=== PATIENT | male | born 1980 | race Caucasian/White ===

== ENCOUNTER 2020-04-22 09:00 | Outpatient (CLI) | payer OTHER, SELFPAY ==
--- NOTE | ~2020-04-22 | XR_ITS ---
XR shoulder RT min 2V DATE: 04/22/2020 09:12 INDICATION: Injury. Right shoulder pain, limited range of motion TECHNIQUE: 4 views COMPARISON: None FINDINGS: No fracture or dislocation, periosteal reaction or bone destruction. No abnormal soft tissu e calcification. IMPRESSION: Negative Reviewed, dictated and finalized at location A. IMPRESSION: Negative
== END 2020-04-22 09:01 | disposition home or self-care (01) ==
LOC: ANHIMG 09:03
PROVIDERS: PCP Family Medicine; Visit Provider Nurse Practitioner Family
DX: M25.519 Pain in unspecified shoulder (principal); M25.611 Stiffness of right shoulder, not elsewhere classified
CPT/HCPCS: 73030

== ENCOUNTER 2021-01-26 15:10 | Outpatient (CLI) | payer OTHER, SELFPAY ==
--- NOTE | ~2021-01-26 | XR_ITS ---
XR shoulder RT min 2V DATE: 01/26/2021 15:29 INDICATION: Right shoulder pain. Injury last fall. TECHNIQUE: 4 views COMPARISON: 05/04/2020 right shoulder FINDINGS: No fracture or dislocation, periosteal reaction or bone destruction or abnormal soft tissue calcification. IMPRESSION: No significant abnormality Reviewed, dictated and finalized at location B. IMPRESSION: No significant abnormality
== END 2021-01-26 15:11 | disposition home or self-care (01) ==
LOC: ANHIMG 15:14
PROVIDERS: PCP Family Medicine; Visit Provider Nurse Practitioner Family
DX: M25.511 Pain in right shoulder (principal); G89.29 Other chronic pain
CPT/HCPCS: 73030

== ENCOUNTER → 2021-07-13 02:53 | Outpatient (CLI) | payer OTHER, SELFPAY ==
[2021-07-14 02:21] LABS: SARS-CoV-2 RNA PCR Positive
== END ==
PROVIDERS: PCP Family Medicine; Visit Provider Nurse Practitioner Family
DX: U07.1 COVID-19 (principal)
CPT/HCPCS: C9803; U0003; U0005

== ENCOUNTER → 2021-09-20 10:40 | Outpatient (CLI) | payer OTHER, SELFPAY ==
--- NOTE | ~2021-09-20 | MR_ITS ---
EXAMINATION: MR shoulder RT wo con DATE: 09/20/2021 11:21 INDICATION: Right shoulder pain TECHNIQUE: Magnetic resonance imaging (MRI) of the right shoulder was performed without intravenous c ontrast. Sequences included axial PD-weighted FS FSE, coronal oblique PD-weighted FS FSE, coronal obl ique T2-weighted FS FSE, sagittal PD-weighted FS FSE, and sagittal T1-weighted SE. COMPARISON: Right shoulder radiograph dated 01/26/2021 FINDINGS: Coracoacromial arch: The acromion undersurface is curved in morphology (type II). The coracoacromial ligament is normal. M ild to moderate acromioclavicular osteoarthritis with small inferiorly directed osteophytes which rem ains separate from the underlying supraspinatus muscle and tendon by thin intervening fat plane. Rotator cuff: Mild tendinopathy of the supraspinatus, infraspinatus and cephalad portion of the subscapularis tendo n without discrete tear. The teres minor tendon is normal. Normal rotator cuff muscle bulk and signal . Biceps tendon, glenoid labrum and glenohumeral cartilage: Long head of the biceps tendon is normal. Glenoid labrum is normal. Glenohumeral cartilage is normal. Fluid: Physiologic amount of fluid in the glenohumeral joint and biceps tendon sheath. No loose osteochondr al bodies. Mild increased fluid signal in the subacromial/subdeltoid bursa consistent with mild bursi tis. Bones: Normal marrow signal with no edema, fracture or pathologic marrow replacing process. Minimal cystic c hange at the middle facet of the greater tuberosity. IMPRESSION: 1. Mild tendinopathy of the supraspinatus, infraspinatus and cephalad subscapularis tendons without d iscrete tear. 2. Mild subacromial/subdeltoid bursitis. 3. Mild to moderate acromioclavicular osteoarthritis. Reviewed, dictated and finalized at location A. [employer] IMPRESSION: 1. Mild tendinopathy of the supraspinatus, infraspinatus and cephalad subscapul ean tendons without discrete tear. 2. Mild subacromial/subdeltoid bursitis. 3. Mild to moderate acromioclavicular osteoarthritis.
== END ==
PROVIDERS: Visit Provider Nurse Practitioner Family
DX: M25.511 Pain in right shoulder (principal); S46.011A Strain of muscle(s) and tendon(s) of the rotator cuff of right shoulder, initial encounter; M75.51 Bursitis of right shoulder; M19.011 Primary osteoarthritis, right shoulder
CPT/HCPCS: 73221

== ENCOUNTER 2023-01-06 16:26 | Emergency (ER) | payer OTHER, SELFPAY ==
--- NOTE | ~2023-01-06 | XR_ITS ---
AP view of the pelvis and AP and lateral views of the left hip Clinical history: Pain Findings: No acute fracture or dislocation is seen. Osseous alignment is anatomic. Bilateral hip and SI joint spaces are preserved. Soft tissues are unremarkable. Impression: No significant abnormality is seen. Reviewed, dictated and finalized at [facility] [place]. Impression: No significant abnormality is seen.
[2023-01-06 16:31] VITALS: BP 138/79; PULSE 90; RESP 16; TEMP 37.2; O2SAT 99
--- NOTE | 2023-01-06 17:45 | ED.FALL ---
HPI - Fall General Chief Complaint: Fall <Elena Toribio PA-C - Last Filed: 01/06/23 17:59> Stated Complaint: fall about 4 ft on hip <Elena Toribio PA-C - Last Filed: 01/06/23 17:59> Time Seen by Provider: 01/06/23 17:31 <Elena Toribio PA-C - Last Filed: 01/06/23 17:59> History of Present Illness HPI Narrative: Patient is a 42-year-old male here for evaluation of left hip pain after fall about 5 hours prior to arrival. Patient states that he was working out on his back deck, in the process of building a porch, when he stepped on a board that was loose and fell from about 4 feet up. He landed directly on the left hip. Has been able to walk but states it is painful. No incontinence or retention of bowel or bladder, saddle anesthesia, numbness or tingling in the leg or weakness. Took 800 mg ibuprofen prior to arrival without relief of his pain. <Elena Toribio PA-C - Last Filed: 01/06/23 17:59> Related Data Allergies/Adverse Reactions: Allergies Allergy/AdvReac Type Severity Reaction Status Date / Time No Known Allergies Allergy Verified 08/31/21 10:24 <Elena Toribio PA-C - Last Filed: 01/06/23 17:59> Review of Systems Review of Systems: Gen: Denies fevers or chills Eyes: Denies eye pain or visual change ENT: Denies congestion Respiratory: Denies shortness of breath or cough CV: Denies chest pain or palpitations GI: Denies abdominal pain nausea, emesis or diarrhea : denies burning, urgency, frequency or hematuria Musculoskeletal: reports left hip pain Neuro: Denies numbness, tingling, weakness or focal weakness Skin: Denies rash Except as documented, all other systems reviewed and negative <Elena Toribio PA-C - Last Filed: 01/06/23 17:59> [facility] Past Medical History Medical History: Medical History BMI 39.0-39.9,adult BMI 40.0-44.9, adult External constriction of right shoulder Unspecified injury of muscle(s) and tendon(s) of the rotator cuff of right shoulder, initial encounter <Elena Toribio PA-C - Last Filed: 01/06/23 17:59> Family History Family History: Family History Mother Hypertension Grandparent Family history of malignant neoplasm Carcinoma of colon Father No problems noted. Sibling No problems noted. 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 Head: Normocephalic and atraumatic. EYES: PERRLA/EOMI, conjunctivae clear NOSE: No nasal drainage EARS: External ear normal in appearance THROAT: Oropharynx is clear. Mucous membranes are moist. NECK: Supple. No adenopathy, no masses. RESPIRATORY: Airway patent, respirations nonlabored. Clear to auscultation bilaterally, no rales, rhonchi, wheezing. CARDIOVASCULAR: 2+ dp/pt pulses bilaterally. Regular rate and rhythm without murmurs, rubs, or gallops. ABDOMINAL: No bruising to the flank or abdomen. No tenderness to abdomen. MUSCULOSKELETAL: There is tenderness to palpation of the left lateral hip. There is no bruising to the area. NEURO: Normal speech. No focal neurologic deficits. SKIN: Skin is warm and dry. No rashes. PSYCHIATRIC: Normal affect/mood. <lEena Toribio PA-C - Last Filed: 01/06/23 17:59> Course ORAL HYGIENIST/PA Physician Supervi
== END 2023-01-06 18:13 | disposition home or self-care (01) ==
LOC: ANHED 17:43
PROVIDERS: Emergency Provider Physician Assistant; PCP Family Medicine
DX: S79.912A Unspecified injury of left hip, initial encounter (principal); W13.8XXA Fall from, out of or through other building or structure, initial encounter
CPT/HCPCS: 73502; 99283

== ENCOUNTER 2023-09-10 03:36 | Day surgery (SDC) | payer OTHER, SELFPAY ==
[2023-08-16 15:03] VITALS: BMI 40.8
--- NOTE | 2023-09-07 12:16 | SUR.PREOP ---
Patient called regarding upcoming procedure. Reviewed preop instructions, appointment times, and procedure prep.
[2023-09-10 09:37] VITALS: BP 161/96; PULSE 72; RESP 20; TEMP 36.3; O2SAT 98; BMI 41.3
[2023-09-10] MEDS: LACTATED RINGERS 1,000 ML 150 ML IV CONT (09:43)
--- NOTE | 2023-09-10 10:10 | WPDANESEPPF ---
Anes - Initial Pre Proc Eval Procedure: Operation Date: 09/10/23 10:30 Proposed Procedures p Colonoscopy - Chris Joseph MD Date/Time: 09/10/23 10:10 Surgeon: Chris Joseph MD Pre Op Diagnosis: hx of colon polyps Patient Data Age: 43 Gender: M Height: 1.91 m Weight: 150 kg Last Vital Signs Temp 36.3 C L 09/10/23 09:37 Pulse 72 09/10/23 09:37 Resp 20 09/10/23 09:37 BP 161/96 H 09/10/23 09:37 Pulse Ox 98 09/10/23 09:37 O2 Del Method Room Air 09/10/23 09:37 Allergies Allergy/AdvReac Type Severity Reaction Status Date / Time No Known Allergies Allergy Verified 08/16/23 15:02 Home Medications Medication Instructions Recorded Confirmed Type hydrochlorothiazide 25 mg tablet 25 mg PO DAILY #90 tabs 05/22/23 08/16/23 Rx losartan 50 mg tablet 50 mg PO DAILY #90 tabs 05/22/23 08/16/23 Rx Patient hx anesthesia problems: none Family hx anesthesia problems: none Results Review: All pre-operative results and documents have been reviewed as part of the pre-operative evaluation. [facility] Past Medical History Medical History BMI 39.0-39.9,adult BMI 40.0-44.9, adult External constriction of right shoulder Unspecified injury of muscle(s) and tendon(s) of the rotator cuff of right shoulder, initial encounter Family History Family History Mother Hypertension Grandparent Family history of malignant neoplasm Carcinoma of colon Father No problems noted. Sibling No problems noted. Social History Social History Social History: none Years smoked: 3 Smoking status: Former smoker Tobacco type: cigarettes Additional smoking assessment comments: 1 pack per week for 3 years Alcohol intake: current Drinks per week: 6 Substance use: never Substance use type: does not use Lack of Transportation: No Lack of Food: Never True Current Housing: I Have Housing Concerned About Future Housing: No Difficulty Paying Gas/Electric Bills: No Difficulty Paying for Meds: No Currently Unemployed: No Education: High School Diploma/GED Difficulty w/ Childcare or Family Care: No Living arrangements: with family Occupation/Education: occupation 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 Informed Consent: The patient's anesthetic plan and its attendant risks and benefits were discussed with the patient/family/POA. Questions were solicited and answers provided to the satisfaction of the patient/family/POA.
--- NOTE | 2023-09-10 10:18 | PM.HPGS ---
History of Present Illness History of Present Illness Consent: Risks, benefits, and alternatives have been discussed and questions answered. Patient agrees to proceed with procedure. Chief complaint: hx of colon polyps Narrative: Fazal Singh is a 43 year old male with polyp, last colonoscopy 5 years ago, also grandparent in each side of family had colon cancer Review of Systems Constitutional: Constitutional: Denies headache(s) and Denies weakness Eyes: Eyes: Denies blurry vision ENT: Reports Normal hearing present, Denies headache(s) and Denies neck pain Cardiovascular: Cardiovascular: Denies chest pain and Denies dyspnea Respiratory: Respiratory: Denies dyspnea Gastrointestinal: Gastrointestinal: Reports no additional gastrointestinal complaints Genitourinary: Genitourinary: Denies dysuria Musculoskeletal: Musculoskeletal: Denies neck pain Integumentary/Breasts: Skin/Breast: Denies dry skin Neurologic: Reports Normal hearing present, Denies headache(s) and Denies weakness Psychiatric: Psychiatric: Denies anxiety Endocrine: Endocrine: Denies change in body appearance Hematologic/Lymphatic: Hematologic/Lymphatic: Denies easy bleeding Allergic/Immunologic: Allergic/Immunologic: Denies urticaria PMFSH Past Medical History Medical History (Updated 09/10/23 @ 10:19 by Chris Joseph MD) BMI 39.0-39.9,adult BMI 40.0-44.9, adult External constriction of right shoulder Family history of colon cancer Unspecified injury of muscle(s) and tendon(s) of the rotator cuff of right shoulder, initial encounter Family History Family History Mother Hypertension Grandparent Family history of malignant neoplasm Carcinoma of colon Father No problems noted. Sibling No problems noted. Social History Social History Social History: none Years smoked: 3 Smoking status: Former smoker Tobacco type: cigarettes Additional smoking assessment comments: 1 pack per week for 3 years Alcohol intake: current Drinks per week: 6 Substance use: never Substance use type: does not use Lack of Transportation: No Lack of Food: Never True Current Housing: I Have Housing Concerned About Future Housing: No Difficulty Paying Gas/Electric Bills: No Difficulty Paying for Meds: No Currently Unemployed: No Education: High School Diploma/GED Difficulty w/ Childcare or Family Care: No Living arrangements: with family Occupation/Education: occupation 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 Gender identity (if verbalized by the patient): Male Spiritual care concerns: No Meds Home Medications and Allergies Home Medications Medication Instructions Recorded Confirmed Type hydrochlorothiazide 25 mg tablet 25 mg PO DAILY #90 tabs 05/22/23 08/16/23 Rx losartan 50 mg tablet 50 mg PO DAILY #90 tabs 05/22/23 08/16/23 Rx Allergies Allergy/AdvReac Type Severity Reaction Status Date / Time No Known Allergies Allergy Verified 08/16/23 15:02 Vital Signs Vital Signs - 24 hr 09/10/23 09:37 Temperature 97.4 F L Pulse Rate 72 Respiratory Rate 20 Blood Pressure 161/96 H Pulse Oximetry 98 Oxygen Delivery Room Air Exam Const: General: comfortable and no acute distress HENMT: Face/Nose/Sinus: Normal nares present Eyes: General: appearance normal, both eyes and all related structures Neck: Neck: no JVD Resp: Auscultation: clear to auscultation bilaterally Cardio: Rate: regular rate Rhythm: regular rhythm GI: Inspection: non-distended GI Palp: Yes Soft to palpation Skin: General skin exam: normal color Neuro: General: gait normal Speech: normal speech Extrem: General: normal to inspection Psych: Mental Status: mental status grossly normal Assessment and Plan Assessment and plan (1) Family history of colon
[2023-09-10 10:47] VITALS: BP 153/77; PULSE 68; RESP 18; O2SAT 96
[2023-09-10 10:57] VITALS: BP 136/83; PULSE 65; RESP 18; O2SAT 96
[2023-09-10 11:07] VITALS: BP 131/88; PULSE 66; RESP 16; O2SAT 98
== END 2023-09-10 11:10 | disposition home or self-care (01) ==
PROVIDERS: PCP Family Medicine; Visit Provider Internal Medicine Gastroenterology
PROC: 0DJD8ZZ Inspection of Lower Intestinal Tract, Via Natural or Artificial Opening Endoscopic (ICD-10-PCS; CPT 45378; principal; 2023-09-10 10:30)
DX: Z12.11 Encounter for screening for malignant neoplasm of colon (principal); D12.3 Benign neoplasm of transverse colon; D12.4 Benign neoplasm of descending colon; D12.5 Benign neoplasm of sigmoid colon; K64.8 Other hemorrhoids; K57.30 Diverticulosis of large intestine without perforation or abscess without bleeding; E66.01 Morbid (severe) obesity due to excess calories; Z68.41 Body mass index [BMI] 40.0-44.9, adult; Z87.891 Personal history of nicotine dependence; Z86.010 Personal history of colon polyps; Z80.0 Family history of malignant neoplasm of digestive organs
CPT/HCPCS: 45385; 45381; 88305; J2704; J7120

== ENCOUNTER 2024-09-23 08:36 | Outpatient (CLI) | payer OTHER, SELFPAY ==
--- NOTE | ~2024-09-23 | US_ITS ---
COMPLETE ABDOMINAL ULTRASOUND Ordering provider: Delaney Díaz APRN History: . R74.8 - Abnormal levels of other serum enzymes . Comparison: None. FINDINGS: LIVER: size and increased echotexture. The liver measures 21 cm. No focal hepatic lesions or perihepatic flu id collections are identified. GALLBLADDER: Unremarkable. No evidence for stones, sludge, gallbladder wall thickening or pericholecy stic fluid collections. A negative sonographic Ornelas's sign was noted. BILIARY DUCTS: No evidence for intra or extrahepatic biliary dilation. Common bile duct measures 5 mm in diameter which is within normal limits. PANCREAS: Normal echotexture and size. SPLEEN: Normal size, echotexture and contour and measures 13.2 cm in length. KIDNEYS: Right measures 13.6x 5.7 x 6. 5 cm in length and the left 14.7x 5.8x 7.2 cm in length. There is no evidence for hydronephrosis, solid renal mass, renal calculi or perinephric fluid collections. No renal cysts. UPPER ABDOMINAL AORTA: Normal in caliber. IVC: Patent. FREE FLUID: None. IMPRESSION: Fat infiltration of the liver with hepatomegaly. Otherwise, Unremarkable complete ultrasound of the a bdomen. Reviewed, dictated and finalized at location A. IMPRESSION: Fat infiltration of the liver with hepatomegaly. Otherwise, Unremarkable comple te ultrasound of the abdomen.
== END 2024-09-23 08:37 | disposition home or self-care (01) ==
PROVIDERS: PCP Nurse Practitioner Adult Health; Visit Provider Nurse Practitioner Adult Health
DX: K76.0 Fatty (change of) liver, not elsewhere classified (principal); R74.8 Abnormal levels of other serum enzymes
CPT/HCPCS: 76700

== ENCOUNTER 2024-12-19 00:08 | Day surgery (SDC) | payer OTHER, SELFPAY ==
[2024-12-12 13:06] VITALS: BMI 38.7
[2024-12-19 07:20] VITALS: BP 141/87; PULSE 79; RESP 16; TEMP 36.8; O2SAT 95
[2024-12-19] MEDS: LACTATED RINGERS 1,000 ML 150 ML IV CONT (07:30)
--- NOTE | 2024-12-19 07:40 | P.PNAN_ITS ---
Anes - Initial Pre Proc Eval Procedure: Operation Date: 12/19/24 08:30 Proposed Procedures p Colonoscopy - Chris Joseph MD Date/Time: 12/19/24 07:40 Surgeon: Chris Joseph MD Pre Op Diagnosis: Hx of polyps Patient Data Age: 44 Gender: M Height: 1.91 m Weight: 143.8 kg Last Vital Signs Temp 36.8 C 12/19/24 07:20 Pulse 79 12/19/24 07:20 Resp 16 12/19/24 07:20 BP 141/87 H 12/19/24 07:20 Pulse Ox 95 12/19/24 07:20 O2 Del Method Room Air 12/19/24 07:20 Allergies Allergy/AdvReac Type Severity Reaction Status Date / Time No Known Allergies Allergy Verified 12/19/24 07:16 Home Medications ?Medication ?Instructions ?Recorded ?Confirmed ?Type fluticasone propionate 50 2 spray intranasal DAILY chronic 06/09/24 12/18/24 Rx mcg/actuation nasal nonallergic rhinitis #18 mL spray,suspension (Flonase Allergy Relief) hydrochlorothiazide 25 mg tablet 25 mg PO DAILY #90 tabs 09/04/24 12/19/24 Rx losartan 50 mg tablet 50 mg PO DAILY #90 tabs 09/04/24 12/19/24 Rx naltrexone 8 mg-bupropion 90 mg 1 tablet PO QAM #90 tabs 12/18/24 12/19/24 Rx tablet,extended release (Contrave) Patient hx anesthesia problems: none Family hx anesthesia problems: none Results Review: All pre-operative results and documents have been reviewed as part of the pre- operative evaluation. [facility] Past Medical History Medical History (Updated 12/19/24 @ 07:41 by Thaddeus Martinez MD) Hypertension Screening cholesterol level Sleep apnea Family history of colon cancer Unspecified injury of muscle(s) and tendon(s) of the rotator cuff of right shoulder, initial encounter External constriction of right shoulder BMI 40.0-44.9, adult BMI 39.0-39.9,adult Surgical History Surgical History (Updated 12/19/24 @ 07:41 by Thaddeus Martinez MD) H/O colonoscopy Family History Family History Mother Hypertension Grandparent Family history of malignant neoplasm Carcinoma of colon Father No problems noted. Sibling No problems noted. Social History Social History Social History: none Years smoked: 3 Smoking status: Former smoker Tobacco type: cigarettes Additional smoking assessment comments: 1 pack per week for 3 years Alcohol intake: current Drinks per week: 6 Substance use: never Substance use type: does not use Do You Feel Safe in your Home?: Yes Lack of Transportation: No Lack of Food: Never True Current Housing: I Have Housing Concerned About Future Housing: No Difficulty Paying Gas/Electric Bills: No Difficulty Paying for Meds: No Currently Unemployed: No Education: High School Diploma/GED Difficulty w/ Childcare or Family Care: No Living arrangements: with family Occupation/Education: occupation 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 Informed Consent: The patient's anesthetic plan and its attendant risks and benefits were discussed with the patient/family/POA. Questions were solicited and answers provided to the satisfaction of the patient/family/POA.
--- NOTE | 2024-12-19 08:19 | P.HP_ITS ---
History of Present Illness History of Present Illness Consent: Risks, benefits, and alternatives have been discussed and questions answered. Patient agrees to proceed with procedure. Chief complaint: Hx of polyps Narrative: Fazal Singh is a 44 year old male with large polyps removed last year Review of Systems Review of Systems: All systems reviewed & are unremarkable except as noted in HPI and below PMFSH Past Medical History Medical History (Updated 12/19/24 @ 08:19 by Chris Joseph MD) Adenomatous colon polyp Hypertension Screening cholesterol level Sleep apnea Family history of colon cancer Unspecified injury of muscle(s) and tendon(s) of the rotator cuff of right shoulder, initial encounter External constriction of right shoulder BMI 40.0-44.9, adult BMI 39.0-39.9,adult Surgical History Surgical History (Updated 12/19/24 @ 07:41 by Thaddeus Martinez MD) H/O colonoscopy Family History Family History Mother Hypertension Grandparent Family history of malignant neoplasm Carcinoma of colon Father No problems noted. Sibling No problems noted. Social History Social History Social History: none Years smoked: 3 Smoking status: Former smoker Tobacco type: cigarettes Additional smoking assessment comments: 1 pack per week for 3 years Alcohol intake: current Drinks per week: 6 Substance use: never Substance use type: does not use Do You Feel Safe in your Home?: Yes Lack of Transportation: No Lack of Food: Never True Current Housing: I Have Housing Concerned About Future Housing: No Difficulty Paying Gas/Electric Bills: No Difficulty Paying for Meds: No Currently Unemployed: No Education: High School Diploma/GED Difficulty w/ Childcare or Family Care: No Living arrangements: with family Occupation/Education: occupation 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 Gender identity (if verbalized by the patient): Male Spiritual care concerns: No Meds Home Medications and Allergies Home Medications ?Medication ?Instructions ?Recorded ?Confirmed ?Type fluticasone propionate 50 2 spray intranasal DAILY chronic 06/09/24 12/18/24 Rx mcg/actuation nasal nonallergic rhinitis #18 mL spray,suspension (Flonase Allergy Relief) hydrochlorothiazide 25 mg tablet 25 mg PO DAILY #90 tabs 09/04/24 12/19/24 Rx losartan 50 mg tablet 50 mg PO DAILY #90 tabs 09/04/24 12/19/24 Rx naltrexone 8 mg-bupropion 90 mg 1 tablet PO QAM #90 tabs 12/18/24 12/19/24 Rx tablet,extended release (Contrave) Allergies Allergy/AdvReac Type Severity Reaction Status Date / Time No Known Allergies Allergy Verified 12/19/24 07:16 Vital Signs Vital Signs - 24 hr 12/19/24 07:20 Temperature 98.2 F Pulse Rate 79 Respiratory Rate 16 Blood Pressure 141/87 H Pulse Oximetry 95 Oxygen Delivery Room Air Exam Const: General: comfortable and no acute distress HENMT: Face/Nose/Sinus: Normal nares present Eyes: General: appearance normal, both eyes and all related structures Neck: Neck: no JVD Resp: Auscultation: clear to auscultation bilaterally Cardio: Rate: regular rate Rhythm: regular rhythm GI: Inspection: non-distended GI Palp: Yes Soft to palpation Skin: General skin exam: normal color Neuro: General: gait normal Speech: normal speech Extrem: General: normal to inspection Psych: Mental Status: mental status grossly normal Assessment and Plan Assessment and plan (1) Family history of colon cancer: Code(s): Z80.0 - Family history of malignant neoplasm of digestive organs Status: Acute (2) Adenomatous colon polyp: Code(s): D12.6 - Benign neoplasm of colon, unspecified Status: Acute Assessment and Plan: colonoscopy
--- NOTE | 2024-12-19 08:32 | S_PTH ---
PATIENT: Fazal Singh LOC: [facility] Whittaker#:[id number] AGE/SX: 44/M ROOM: RE12/19/[address]: Chris Joseph MD : 1980 BED: DIS: 12/19/2024 SPEC #: [id number] RECD: 12/19/24 09:40 STATUS: [place] RECarmen #: [id number] ANNETTE: 12/19/24 08:[address]: Chris Joseph DEPT: [facility] Surgical RECD BY: Kristal Veliz ENTERED: 12/19/24 09:40 SP TYPE: Surgical OTHR DR: Hema Haq MD Tissues: A - Colon Polypectomy B - Colon Polypectomy Procedures: Hematoxylin and Eosin Stain Gross and Microscopic Level 4
[2024-12-19 08:36] VITALS: BP 130/66; PULSE 61; RESP 20; O2SAT 96
[2024-12-19 08:46] VITALS: BP 133/72; PULSE 60; RESP 16; O2SAT 96
[2024-12-19 08:56] VITALS: BP 138/88; PULSE 71; RESP 18; O2SAT 99
== END 2024-12-19 09:08 | disposition home or self-care (01) ==
PROVIDERS: PCP Family Medicine; Referring Provider Internal Medicine Gastroenterology; Visit Provider Internal Medicine Gastroenterology
PROC: 0DJD8ZZ Inspection of Lower Intestinal Tract, Via Natural or Artificial Opening Endoscopic (ICD-10-PCS; CPT 45378; principal; 2024-12-19 08:30)
DX: Z12.11 Encounter for screening for malignant neoplasm of colon (principal); D12.2 Benign neoplasm of ascending colon; D12.3 Benign neoplasm of transverse colon; K57.30 Diverticulosis of large intestine without perforation or abscess without bleeding; Z80.0 Family history of malignant neoplasm of digestive organs; Z87.891 Personal history of nicotine dependence; E66.01 Morbid (severe) obesity due to excess calories; Z68.39 Body mass index [BMI] 39.0-39.9, adult
CPT/HCPCS: 45385; 88305; J2704; J7120